=== PATIENT | female | born 1940 | race African-American/Black ===

== ENCOUNTER 2018-08-15 05:59 | Emergency (ER) | payer MEDICARE ==
[~2018-08-15] VITALS: Ht 160 cm; Wt 53.5 kg
[~2018-08-15 05:59] MED LIST: ACET650T89 PO; CHRO1TAB6 PO; FERR325T14 PO; LOSA1TAB25 PO; NAPR220C4 PO; TRAM50TA PO; UBID10CA5 PO
[2018-08-15] MEDS ORDERED: ONDANSETRON ODT 4 MG TAB.RAPDIS. PO ONE (06:45)
--- NOTE | 2018-08-15 07:02 | PHYS DOC ---
Adult General Chief Complaint Chief Complaint: NAUSEA/VOMITING/DIARRHA HPI HPI Patient is a 78 year old female who presents with complaint of nausea with vomiting and diarrhea that started last night. Patient also complains of generalized weakness as well as abdominal cramping. She states that her abdominal muscles are also sore from so many episodes of vomiting. She did state that she was able to keep down a small amount of 7-Up this morning. She states that symptoms are worsened with eating or drinking. She states that nothing is helping her symptoms. She denies any fever, body aches or chills. She also denies any chest pain, shortness of breath or back pain. She describes the abdominal cramping as being moderate. She states that it is worse around the time when she has to throw up or have diarrhea. Review of Systems Review of Systems Constitutional: Denies fever or chills [] Respiratory: Denies cough or shortness of breath [] Cardiovascular: No additional information not addressed in HPI [] GI: Complains of abdominal cramping with nausea, vomiting and diarrhea [] Musculoskeletal: Denies back pain or joint pain [] All other systems were reviewed and found to be within normal limits, except as documented in this note. Current Medications Current Medications Current Medications Medications (Trade) Dose Ordered Sig/Ankita Start Time Stop Time Status Last Admin Dose Admin Diphenoxylate HCl/ Atropine (Lomotil) 2 tab 1X ONCE 08/15/18 07:45 08/15/18 07:46 DC 08/15/18 07:46 2 TAB Ondansetron HCl (Zofran Odt) 4 mg 1X ONCE 08/15/18 06:45 08/15/18 06:46 DC 08/15/18 07:08 4 MG Allergies Allergies Allergies Coded Allergies Type Severity Reaction Last Updated Verified Penicillins Allergy Intermediate Hives 02/12/16 Yes erythromycin base Allergy Intermediate Hives 02/10/16 Yes sulfur dioxide Allergy Intermediate 02/12/16 Yes tobramycin Allergy Intermediate Hives 02/10/16 Yes Sulfa (Sulfonamide Antibiotics) Adverse Reaction Severe Hives 01/23/16 Yes Physical Exam Physical Exam Constitutional: Well developed, well nourished, no acute distress, non-toxic appearance. [] HENT: Normocephalic, atraumatic, bilateral external ears normal, oropharynx moist, no oral exudates, nose normal. [] Eyes: PERRLA, EOMI, conjunctiva normal, no discharge. [] Neck: Normal range of motion, no tenderness, supple, no stridor. [] Cardiovascular: Regular rate and rhythm, no murmur [] Lungs & Thorax: Bilateral breath sounds clear to auscultation [] Abdomen: Bowel sounds normal, soft, with mild tenderness in the mid to epigastric region. [] Skin: Warm, dry, no erythema, no rash. [] Extremities: No tenderness, no cyanosis, no clubbing, ROM intact, no edema. [] Neurologic: Alert and oriented X 3, normal motor function, normal sensory function, no focal deficits noted. [] Current Patient Data Vital Signs Vital Signs Date Time Temp Pulse Resp B/P (MAP) Pulse Ox O2 Delivery O2 Flow Rate FiO2 08/15/18 06:10 98.5 112 18 167/80 (109) 100 Room Air 98.5 Lab Values Laboratory Tests Test 08/15/18 06:50 White Blood Count 10.8 x10^3/uL (4.0-11.0) Red Blood Count 4.75 x10^6/uL (3.50-5.40) Hemoglobin 14.5 g/dL (12.0-15.5) Hematocrit 43.0 % (36.0-47.0) Mean Corpuscular Volume 91 fL (79-100) Mean Corpuscular Hemoglobin 31 pg (25-35) Mean Corpuscular Hemoglobin Concent 34 g/dL (31-37) Red Cell Distribution Width 13.5 % (11.5-14.5) Platelet Count 343 x10^3/uL (140-400) Neutrophils (%) (Auto) 94 % (31-73) H Lymphocytes (%) (Auto) 2 % (24-48) L Monocytes (%) (Auto) 4 % (0-9) Eosinophils (%) (Auto) 0 % (0-3) Basophils (%) (Auto) 0 % (0-3) Neutrophils # (Auto) 10.2 x10^3uL (1.8-7.7) H Lymphocytes # (Auto) 0.2 x10^3/uL (1.0-4.8) L Monocytes # (Auto) 0.4 x10^3/uL (0.0-1.1) Eosinophils # (Auto) 0.0 x10^3/uL (0.0-0.7) Basophils # (Auto) 0.0 x10^3/uL (0.0-0.2) Platelet Estimate Pending Sodium Level 142 mmol/L (136-145) Potassium Level 3.8 mmol/L (3.5-5.1) Chloride Level 104 mmol/L (98-107) Carbon Dioxide Level 28 mmol/L (21-32) Anion Gap 10 (6-14) Blood Urea Nitrogen 29 mg/dL (7-20) H Creatinine 1.0 mg/dL (0.6-1.0) Estimated GFR (Cockcroft-Gault) 64.7 BUN/Creatinine Ratio 29 (6-20) H Glucose Level 150 mg/dL (70-99) H Calcium Level 9.7 mg/dL (8.5-10.1) Total Bilirubin 1.1 mg/dL (0.2-1.0) H Aspartate Amino Transferase (AST) 27 U/L (15-37) Alanine Aminotransferase (ALT) 27 U/L (14-59) Alkaline Phosphatase 73 U/L (46-116) Total Protein 8.0 g/dL (6.4-8.2) Albumin 4.0 g/dL (3.4-5.0) Albumin/Globulin Ratio 1.0 (1.0-1.7) Lipase 132 U/L (73-393) Laboratory Tests 08/15/18 06:50 Laboratory Tests 08/15/18 06:50 EKG EKG [] Radiology/Procedures Radiology/Procedures [] Course & Med Decision Making Course & Med Decision Making Pertinent Labs and Imaging studies reviewed. (See chart for details) [] Dragon Disclaimer Dragon Disclaimer This electronic medical record was generated, in whole or in part, using a voice recognition dictation system. Departure Departure Impression: Primary Impression: Gastroenteritis Additional Impression: Dehydration Disposition: 01 HOME, SELF-CARE Condition: STABLE Referrals: KAVEH OLSON MD (PCP) Patient Instructions: Dehydration, Adult, Viral Gastroenteritis Scripts Diphenoxylate Hcl/Atropine (LOMOTIL TABLET) 1 Each Tablet 1 TAB PO TID PRN for DIARRHEA, #30 TAB Prov: ARNULFO JAQUEZ Jr. DO 08/15/18 Ondansetron Hcl (ZOFRAN) 4 Mg Tablet 4 MG PO PRN TID PRN for NAUSEA/VOMITING, #15 nausea/vomiting Prov: ARNULFO JAQUEZ Jr. DO 08/15/18 Problem Qualifiers ARNULFO JAQUEZ Jr. DO Aug 15, 2018 07:02
[2018-08-15 07:19] LABS: CALCIUM 9.7 mg/dL (8.5-10.1); GFR 64.7; POTASSIUM 3.8 mmol/L (3.5-5.1)
[2018-08-15 07:22] LABS: BASO % 0 % (0-3); EOS % 0 % (0-3); HEMOGLOBIN 14.5 g/dL (12.0-15.5); LYMPH # 0.2 x10^3/uL (1.0-4.8); LYMPH % 2 % (24-48); MEAN CORPUSCULAR HEMOGLOBIN 31 pg (25-35); MEAN CORPUSCULAR HGB CONC 34 g/dL (31-37); MEAN CORPUSCULAR VOLUME 91 fL (79-100); MONO # 0.4 x10^3/uL (0.0-1.1); MONO % 4 % (0-9); NEUT # 10.2 x10^3uL (1.8-7.7); NEUT % 94 % (31-73); PLATELET COUNT 343 x10^3/uL (140-400); RED BLOOD COUNT 4.75 x10^6/uL (3.50-5.40); RED CELL DISTRIBUTION WIDTH 13.5 % (11.5-14.5); WHITE BLOOD COUNT 10.8 x10^3/uL (4.0-11.0)
[2018-08-15 07:25] LABS: TOTAL BILIRUBIN 1.1 mg/dL (0.2-1.0)
[2018-08-15] MEDS ORDERED: DIPHENOXYLATE/ATROPINE TABLET. PO ONE (07:45)
[2018-08-15] MEDS ORDERED: DIPH1TAB PO (08:54)
[2018-08-15] MEDS ORDERED: ONDA4TAB7 PO (08:54)
[2018-08-15 09:10] VITALS: BP 128/71
[2018-08-15 10:20] LABS: % BANDS 14 % (0-9); % LYMPHS 1 % (24-48); % MONOS 3 % (0-10); % SEGS 82 % (35-66); PLT ESTIMATE ADEQUATE (ADEQUATE)
== END 2018-08-15 09:10 | disposition home or self-care (01) ==
LOC: ER 05:59
DX: K52.9 Noninfective gastroenteritis and colitis, unspecified (principal); E86.0 Dehydration; Z88.0 Allergy status to penicillin; Z88.1 Allergy status to other antibiotic agents; Z88.2 Allergy status to sulfonamides
CPT/HCPCS: 36415; 80053; 83690; 85007; 85025; 99283; Q0162

== ENCOUNTER 2019-07-05 19:38 | Emergency (ER) | payer MEDICARE ==
[~2019-07-05] VITALS: Ht 160 cm; Wt 53.5 kg
[~2019-07-05 19:38] MED LIST changes: +DIPH1TAB PO; +ONDA4TAB7 PO
[2019-07-05 19:52] VITALS: BP 142/77
--- NOTE | 2019-07-05 20:17 | PHYS DOC ---
Past Medical History Past Medical History: No Pertinent History (CAN KING APRN) Past Surgical History: No Surgical History (CAN KING APRN) Alcohol Use: None Drug Use: None (CAN KING APRN) Attending Signature I have participated in the care of this patient and I have reviewed and agree with all pertinent clinical information above including history, exam, and recommendations. (SERGEY CAMERON MD) Adult General Chief Complaint Chief Complaint: THUMB HPI HPI Patient is a 79 year old female who presents with got her nails done on Tuesday and then noticed tonight that after she was cleaning up dinner that her left thumb began to swell. The tip of the thumb down to the mid joint is reddened and swollen. Denies pain. (CAN KING APRN) Review of Systems Review of Systems Musculoskeletal: Denies back pain. Left thumb joint pain [] Integument: Left thumb redness and 2+ swelling. Denies rash or skin lesions [] All other systems were reviewed and found to be within normal limits, except as documented in this note. (CAN KING APRN) Allergies Allergies Allergies Coded Allergies Type Severity Reaction Last Updated Verified Penicillins Allergy Intermediate Hives 02/12/16 Yes erythromycin base Allergy Intermediate Hives 02/10/16 Yes sulfur dioxide Allergy Intermediate 02/12/16 Yes tobramycin Allergy Intermediate Hives 02/10/16 Yes Sulfa (Sulfonamide Antibiotics) Adverse Reaction Severe Hives 01/23/16 Yes (SERGEY CAMERON MD) Physical Exam Physical Exam Constitutional: Well developed, well nourished, no acute distress, non-toxic appearance. [] Skin: Warm, dry, Left thumb erythema, no rash. [] Extremities: No tenderness, no cyanosis, no clubbing, ROM intact, Left thumb 2+ edema. [] Neurologic: Alert and oriented X 3, normal motor function, normal sensory function, no focal deficits noted. [] Psychologic: Affect normal, judgement normal, mood normal. [] (CAN KING APRN) Current Patient Data Vital Signs Vital Signs Date Time Temp Pulse Resp B/P (MAP) Pulse Ox O2 Delivery O2 Flow Rate FiO2 07/05/19 19:52 98.7 81 18 142/77 (98) 96 Room Air 98.7 (SERGEY CAMERON MD) Lab Values Laboratory Tests Test 07/05/19 20:34 Lactic Acid Level 1.8 mmol/L (0.4-2.0) Creatine Kinase 151 U/L (26-192) (SERGEY CAMERON MD) Lab Values Laboratory Tests Test 07/05/19 20:34 Lactic Acid Level 1.8 mmol/L (0.4-2.0) Creatine Kinase 151 U/L (26-192) (CAN KING APRN) EKG EKG [] (CAN KING APRN) Radiology/Procedures Radiology/Procedures [] (CAN KING APRN) Course & Med Decision Making Course & Med Decision Making Cap refill less than 3 seconds. Denies numbness or tingling. No open source of infection seen. No damage to the nail. No tenderness. Patient can bend at all thumb joints. There is warmth to the thumb. 2+ swelling got the thumb. Denies any pain. I went over this patient with Dr Cameron. He states to draw a Lactic and CPK. Blood results are normal. Patient to call her doctor tomorrow for follow up. (CAN KING APRN) Dragon Disclaimer Dragon Disclaimer This electronic medical record was generated, in whole or in part, using a voice recognition dictation system. (CAN KING APRN) Departure Departure Impression: Primary Impression: Thumb swelling Disposition: HOME, SELF-CARE Condition: STABLE Referrals: VIJI SULLIVAN MD (PCP) Patient Instructions: Medical Screening Exam Additional Instructions: Call Dr Mendez tomorrow to see her follow up. Take medication as directed. Scripts Clindamycin Hcl (CLINDAMYCIN HCL) 300 Mg Capsule 1 CAP PO TID, #30 CAP Prov: CAN KING APRN 07/05/19 CAN KING APRN Jul 05, 2019 20:17 SERGEY CAMERON MD Jul 05, 2019 23:02
[2019-07-05] MEDS ORDERED: CLIN300C8 PO (21:04)
== END 2019-07-05 21:28 | disposition home or self-care (01) ==
LOC: ER 19:38
DX: R22.32 Localized swelling, mass and lump, left upper limb (principal); M25.542 Pain in joints of left hand; Z88.0 Allergy status to penicillin; Z88.1 Allergy status to other antibiotic agents; Z88.2 Allergy status to sulfonamides
CPT/HCPCS: 36415; 82550; 83605; 99284